=== PATIENT | male | born 1975 | race Caucasian/White ===

== ENCOUNTER 2023-09-25 07:24 | Day surgery (SDC) | payer MEDICAID ==
[~2023-09-25] VITALS: Ht 167.6 cm; Wt 54.4 kg
[2023-09-25] MEDS ORDERED: MIDAZOLAM HCL 5 MG/5 ML VIAL ONE ×2 (07:58→09:30)
[2023-09-25] MEDS ORDERED: MEPERIDINE 100 MG INJ. 100 MG/ML VIAL ONE (07:58)
[2023-09-25 08:57] VITALS: O2SAT 98
[2023-09-25 11:30] VITALS: BP_SYST 111; PULSE 100; RESP 17
== END 2023-09-25 10:50 | disposition home or self-care (01) ==
LOC: SDS 07:24 → SMU 07:25 → SDS 10:50
PROVIDERS: ATTEND Internal Medicine Gastroenterology
DX: K59.00 Constipation, unspecified (principal); D12.3 Benign neoplasm of transverse colon; K29.30 Chronic superficial gastritis without bleeding; K21.9 Gastro-esophageal reflux disease without esophagitis; K64.8 Other hemorrhoids; K44.9 Diaphragmatic hernia without obstruction or gangrene; E11.9 Type 2 diabetes mellitus without complications; M19.90 Unspecified osteoarthritis, unspecified site; Z88.5 Allergy status to narcotic agent; Z87.891 Personal history of nicotine dependence; Z98.890 Other specified postprocedural states; Z79.899 Other long term (current) drug therapy
CPT/HCPCS: 45385; 43239; 99152; 87081; 36415; 88305; 88312; 88313; 99153; G0378; J2250; J2175